=== PATIENT | female | born 1930 | race Caucasian/White ===

== ENCOUNTER 2017-04-26 16:27 | Inpatient (IN) | payer OTHER, MEDICAID ==
[~2017-04-26] VITALS: Ht 152.4 cm; Wt 54.2 kg
[~2017-04-26 16:27] MED LIST: CALC500T3 PO; DONE10TA44 PO; GABA-531 PO; HYDR-1189 PO; MIRT15TA7 PO; SOTA80TA PO; VITD2000 PO; WARF5TAB2 PO
[2017-04-26 17:26] VITALS: BP_SYST 117; BP_SYST 143
[2017-04-26] MEDS ORDERED: MEMA5TAB PO (17:58)
[2017-04-26] MEDS ORDERED: POTA-118 PO (17:59)
[2017-04-26] MEDS ORDERED: LevALBUTEROL HCL 1.25 MG/0.5 ML *CONC.* VIAL.NEB (XOPENEX CONC.) INH PRN (18:45)
[2017-04-26 18:59] LABS: BASOPHILS % (AUTO) 0.6 % (0.0-2.0); EOSINOPHILS # (AUTO) 0.1 K/uL (0.0-0.4); EOSINOPHILS % (AUTO) 0.9 % (0.0-4.0); HEMATOCRIT 40.3 % (36-48); HEMOGLOBIN 13.1 g/dL (12.0-16.0); LYMPHOCYTES # (AUTO) 1.1 K/uL (1.0-5.5); LYMPHOCYTES % (AUTO) 16.4 % (20.5-51.5); MEAN CORPUSCULAR HEMOGLOBIN 29 pg (27-31); MEAN CORPUSCULAR HGB CONC 33 % (32-36); MEAN CORPUSCULAR VOLUME 89 fL (79.0-98.0); MONOCYTES # (AUTO) 0.5 K/uL (0.0-1.0); MONOCYTES % (AUTO) 6.6 % (1.7-9.3); NEUTROPHILS # (AUTO) 5.2 K/uL (1.8-7.7); PLATELET COUNT (AUTO) 378 K/uL (130-430); RED BLOOD CELL COUNT(AUTO) 4.53 MIL/uL (4.2-6.2); RED CELL DISTRIBUTION WIDTH 14.4 % (9.0-15.0); WHITE BLOOD COUNT (AUTO) 6.9 K/uL (4.8-10.8)
[2017-04-26] MEDS: cefTRIAXone 1 GM in D5W 50 ML IV SCH (19:00)
[2017-04-26 19:19] LABS: NEUTROPHILS % (AUTO) 75.5 % (40.0-70.0)
[2017-04-26 19:49] LABS: INR 2.1 (0.8-1.2); PROTHROMBIN TIME 21.2 SECS (9.5-12.5)
[2017-04-26 20:00] VITALS: BP_SYST 143
[2017-04-26] MEDS ORDERED: cefTRIAXone 1 GM IVPB PREMIX 50 ML IV ONE (20:10)
[2017-04-26] MEDS ORDERED: AZITHROMYCIN 500 MG/VIAL (ZITHROMAX) IV ONE (20:10)
[2017-04-26 20:18] LABS: ALANINE AMINOTRANSFERASE 15 U/L (12-78); ALBUMIN 3.4 g/dL (3.4-4.8); ANION GAP 7 (5-15); ASPARTATE AMINOTRANSFERASE 16 U/L (10-37); CHLORIDE 98 mmol/L (98-107); CREATININE 0.76 mg/dL (0.55-1.30); GLUCOSE 91 mg/dL (70-99); POTASSIUM 3.9 mmol/L (3.5-5.1); SODIUM SERUM 134 mmol/L (136-145); TOTAL BILIRUBIN 0.3 mg/dL (0.0-1.0); UREA NITROGEN, BLOOD 35 mg/dL (8-21)
[2017-04-26] MEDS: KCL 20 mEq in D5NS 1000 mL 1,000 ML IV SCH (20:36)
[2017-04-26 20:40] VITALS: BP_SYST 143
[2017-04-26] MEDS: DONEPEZIL HCL 5 MG TABLET (ARICEPT) PO SCH (21:16)
[2017-04-26] MEDS: MEGESTROL ACETATE 400 MG/10 ML UDC PO SCH (21:16)
[2017-04-26] MEDS: MIRTAZAPINE 15 MG TABLET PO SCH (21:17)
[2017-04-26] MEDS: GABAPENTIN 100 MG CAPSULE PO SCH (21:18)
[2017-04-26] MEDS: SOTALOL HCL 80 MG TABLET PO SCH (21:18)
[2017-04-26] MEDS: MEMANTINE HCL 5 MG TABLET PO SCH (21:19)
[2017-04-26] MEDS: AZITHROMYCIN 500 MG in NS 250 ML IV SCH (22:16)
[2017-04-26] MEDS: LevALBUTEROL HCL 1.25 MG/0.5 ML *CONC.* VIAL.NEB (XOPENEX CONC.) INH SCH (23:49)
[2017-04-27 00:37] VITALS: BP_SYST 106
[2017-04-27] MEDS: LevALBUTEROL HCL 1.25 MG/0.5 ML *CONC.* VIAL.NEB (XOPENEX CONC.) INH SCH ×3 (07:14→23:09)
[2017-04-27 07:59] VITALS: BP_SYST 119
[2017-04-27] MEDS: MEMANTINE HCL 5 MG TABLET PO SCH ×2 (09:13→20:41)
[2017-04-27] MEDS: CHOLECALCIFEROL (VITAMIN D3) 2,000 UNIT TABLET PO SCH (09:13)
[2017-04-27] MEDS: MEGESTROL ACETATE 400 MG/10 ML UDC PO SCH ×2 (09:13→20:38)
[2017-04-27] MEDS: GABAPENTIN 100 MG CAPSULE PO SCH ×3 (09:13→20:41)
[2017-04-27] MEDS: CALCIUM 500 MG/TAB PO SCH (09:13)
[2017-04-27] MEDS: POTASSIUM CHLORIDE 10 MEQ TAB.PRT.SR PO SCH (09:13)
[2017-04-27] MEDS: SOTALOL HCL 80 MG TABLET PO SCH ×2 (09:14→20:40)
[2017-04-27 11:30] VITALS: BP_SYST 95
[2017-04-27] MEDS: KCL 20 mEq in D5NS 1000 mL 1,000 ML IV SCH (14:28)
[2017-04-27 15:04] VITALS: BP_SYST 96
[2017-04-27] MEDS: cefTRIAXone 1 GM in D5W 50 ML IV SCH (17:50)
[2017-04-27] MEDS: WARFARIN SODIUM 2 MG TABLET PO SCH (17:52)
[2017-04-27 19:05] VITALS: BP_SYST 129
[2017-04-27] MEDS: AZITHROMYCIN 500 MG in NS 250 ML IV SCH (20:38)
[2017-04-27] MEDS: MIRTAZAPINE 15 MG TABLET PO SCH (20:41)
[2017-04-27] MEDS: DONEPEZIL HCL 5 MG TABLET (ARICEPT) PO SCH (20:43)
[2017-04-28 01:08] VITALS: BP_SYST 104
[2017-04-28 07:47] LABS: INR 2.9 (0.8-1.2)
[2017-04-28 08:02] VITALS: BP_SYST 124
[2017-04-28 08:22] LABS: PROTHROMBIN TIME 29.7 SECS (9.5-12.5)
[2017-04-28] MEDS: MEGESTROL ACETATE 400 MG/10 ML UDC PO SCH ×2 (08:26→20:22)
[2017-04-28] MEDS: CALCIUM 500 MG/TAB PO SCH (08:27)
[2017-04-28] MEDS: SOTALOL HCL 80 MG TABLET PO SCH ×2 (08:27→20:22)
[2017-04-28] MEDS: GABAPENTIN 100 MG CAPSULE PO SCH ×3 (08:27→20:22)
[2017-04-28] MEDS: CHOLECALCIFEROL (VITAMIN D3) 2,000 UNIT TABLET PO SCH (08:28)
[2017-04-28] MEDS: MEMANTINE HCL 5 MG TABLET PO SCH ×2 (08:28→20:22)
[2017-04-28] MEDS: POTASSIUM CHLORIDE 10 MEQ TAB.PRT.SR PO SCH (08:28)
[2017-04-28] MEDS: LevALBUTEROL HCL 1.25 MG/0.5 ML *CONC.* VIAL.NEB (XOPENEX CONC.) INH SCH ×3 (09:32→22:47)
[2017-04-28 12:43] VITALS: BP_SYST 102
[2017-04-28] MEDS: KCL 20 mEq in D5NS 1000 mL 1,000 ML IV SCH (14:49)
[2017-04-28 16:24] VITALS: BP_SYST 128
[2017-04-28] MEDS: cefTRIAXone 1 GM in D5W 50 ML IV SCH (17:39)
[2017-04-28] MEDS: WARFARIN SODIUM 2 MG TABLET PO SCH (17:39)
[2017-04-28 19:51] VITALS: BP_SYST 132
[2017-04-28] MEDS: DONEPEZIL HCL 5 MG TABLET (ARICEPT) PO SCH (20:21)
[2017-04-28] MEDS: MIRTAZAPINE 15 MG TABLET PO SCH (20:21)
[2017-04-28] MEDS: AZITHROMYCIN 500 MG in NS 250 ML IV SCH (20:23)
[2017-04-28] MEDS ORDERED: FUROSEMIDE 40 MG/4 ML VIAL IVP ONE (20:45)
[2017-04-28] MEDS ORDERED: IBUPROFEN 400 MG TABLET PO ONE (21:30)
[2017-04-29 00:41] VITALS: BP_SYST 102
[2017-04-29 07:20] LABS: BASOPHILS % (AUTO) 0.2 % (0.0-2.0); EOSINOPHILS # (AUTO) 0.1 K/uL (0.0-0.4); HEMATOCRIT 37.2 % (36-48); HEMOGLOBIN 12.3 g/dL (12.0-16.0); LYMPHOCYTES % (AUTO) 14.8 % (20.5-51.5); MEAN CORPUSCULAR HEMOGLOBIN 30 pg (27-31); MEAN CORPUSCULAR HGB CONC 33 % (32-36); MEAN CORPUSCULAR VOLUME 90 fL (79.0-98.0); MONOCYTES # (AUTO) 0.4 K/uL (0.0-1.0); NEUTROPHILS # (AUTO) 5.6 K/uL (1.8-7.7); PLATELET COUNT (AUTO) 348 K/uL (130-430); RED BLOOD CELL COUNT(AUTO) 4.14 MIL/uL (4.2-6.2); RED CELL DISTRIBUTION WIDTH 14.2 % (9.0-15.0); WHITE BLOOD COUNT (AUTO) 7.1 K/uL (4.8-10.8)
[2017-04-29 07:32] LABS: ANION GAP 6 (5-15); CALCIUM 9.2 mg/dL (8.4-11.0); CHLORIDE 104 mmol/L (98-107); CREATININE 0.81 mg/dL (0.55-1.30); GLUCOSE 99 mg/dL (70-99); POTASSIUM 4.4 mmol/L (3.5-5.1); SODIUM SERUM 138 mmol/L (136-145); UREA NITROGEN, BLOOD 21 mg/dL (8-21)
[2017-04-29 07:36] LABS: INR 4.3 (0.8-1.2); PROTHROMBIN TIME 44.6 SECS (9.5-12.5)
[2017-04-29 08:08] VITALS: BP_SYST 106
[2017-04-29] MEDS: POTASSIUM CHLORIDE 10 MEQ TAB.PRT.SR PO SCH (10:12)
[2017-04-29] MEDS: GABAPENTIN 100 MG CAPSULE PO SCH ×3 (10:12→21:16)
[2017-04-29] MEDS: CHOLECALCIFEROL (VITAMIN D3) 2,000 UNIT TABLET PO SCH (10:12)
[2017-04-29] MEDS: MEGESTROL ACETATE 400 MG/10 ML UDC PO SCH ×2 (10:12→21:15)
[2017-04-29] MEDS: CALCIUM 500 MG/TAB PO SCH (10:13)
[2017-04-29] MEDS: SOTALOL HCL 80 MG TABLET PO SCH ×2 (10:13→22:26)
[2017-04-29] MEDS: IBUPROFEN 400 MG TABLET PO SCH ×3 (10:13→21:00)
[2017-04-29] MEDS: FUROSEMIDE 20 MG TABLET PO SCH ×2 (10:14→22:26)
[2017-04-29] MEDS: MEMANTINE HCL 5 MG TABLET PO SCH ×2 (10:14→21:17)
[2017-04-29 11:28] VITALS: BP_SYST 115
[2017-04-29 15:25] VITALS: BP_SYST 117
[2017-04-29] MEDS: LevALBUTEROL HCL 1.25 MG/0.5 ML *CONC.* VIAL.NEB (XOPENEX CONC.) INH SCH ×3 (15:56→23:20)
[2017-04-29 16:35] VITALS: BP_SYST 117
[2017-04-29] MEDS: WARFARIN SODIUM 2 MG TABLET PO SCH (18:00)
[2017-04-29] MEDS: cefTRIAXone 1 GM in D5W 50 ML IV SCH (18:43)
[2017-04-29 19:50] VITALS: BP_SYST 106
[2017-04-29] MEDS: AZITHROMYCIN 500 MG in NS 250 ML IV SCH (21:15)
[2017-04-29] MEDS: MIRTAZAPINE 15 MG TABLET PO SCH (21:16)
[2017-04-29] MEDS: DONEPEZIL HCL 5 MG TABLET (ARICEPT) PO SCH (21:16)
[2017-04-30] VITALS (7 sets, daily range): BP systolic 102–128
[2017-04-30 07:08] LABS: INR 3.6 (0.8-1.2); PROTHROMBIN TIME 37.2 SECS (9.5-12.5)
[2017-04-30] MEDS: LevALBUTEROL HCL 1.25 MG/0.5 ML *CONC.* VIAL.NEB (XOPENEX CONC.) INH SCH ×2 (07:20→15:14)
[2017-04-30] MEDS: GABAPENTIN 100 MG CAPSULE PO SCH ×2 (09:45→15:08)
[2017-04-30] MEDS: CALCIUM 500 MG/TAB PO SCH (09:45)
[2017-04-30] MEDS: MEMANTINE HCL 5 MG TABLET PO SCH (09:45)
[2017-04-30] MEDS: CHOLECALCIFEROL (VITAMIN D3) 2,000 UNIT TABLET PO SCH (09:45)
[2017-04-30] MEDS: POTASSIUM CHLORIDE 10 MEQ TAB.PRT.SR PO SCH (09:45)
[2017-04-30] MEDS: FUROSEMIDE 20 MG TABLET PO SCH (09:45)
[2017-04-30] MEDS: IBUPROFEN 400 MG TABLET PO SCH ×2 (09:47→15:09)
[2017-04-30] MEDS: MEGESTROL ACETATE 400 MG/10 ML UDC PO SCH (09:47)
[2017-04-30] MEDS: SOTALOL HCL 80 MG TABLET PO SCH ×2 (09:54→09:55)
[2017-04-30] MEDS: cefTRIAXone 1 GM in D5W 50 ML IV SCH (18:46)
[2017-04-30] MEDS ORDERED: MEGE400O PO (18:47)
[2017-05-02] MEDS ORDERED: FURO-149 PO (09:33)
[2017-05-02] MEDS ORDERED: WARF2TAB2 PO (13:36)
== END 2017-04-30 20:50 | disposition home or self-care (01) | DRG 291 ==
LOC: SMU 16:55 → STU 17:20
PROVIDERS: ADMIT Family Medicine; ATTEND Family Medicine
DX: I11.0 Hypertensive heart disease with heart failure (principal); J18.9 Pneumonia, unspecified organism; E86.0 Dehydration; I42.9 Cardiomyopathy, unspecified; F03.90 Unspecified dementia, unspecified severity, without behavioral disturbance, psychotic disturbance, mood disturbance, and anxiety; I50.23 Acute on chronic systolic (congestive) heart failure; F32.9 Major depressive disorder, single episode, unspecified; M19.90 Unspecified osteoarthritis, unspecified site
CPT/HCPCS: 36415; 71010; 80048; 80053; 83880; 85025; 85610-TC; 87081; 94640; 94760; 97116-GP; 97530-GP; J0456; J0696; J1940; J7030; J7050; J7060

== ENCOUNTER 2017-08-18 00:05 | Inpatient (IN) | payer OTHER, MEDICAID ==
[~2017-08-18] VITALS: Ht 121.9 cm; Wt 47.6 kg
[~2017-08-18 00:05] MED LIST changes: +ALPR0.2583 PO; +CRAN450C PO; +DOCU-144 PO; -HYDR-1189 PO; +MEGE400O PO; +MEMA5TAB PO; +METO5TAB8 PO; +MUC20RT MC; +MULT-1100 PO; +NITR1PAT3 TD; +POTA-118 PO; -WARF5TAB2 PO
[2017-08-18 00:40] VITALS: BP_SYST 139
[2017-08-18] MEDS: [UNRECOGNIZED DRUG - OTHER] IV SCH ×2 (01:19→16:23)
[2017-08-18] MEDS: POTASSIUM CHLORIDE IV SCH ×2 (01:19→16:23)
[2017-08-18] MEDS: D5 IV SCH ×2 (01:19→16:23)
[2017-08-18 03:56] VITALS: BP_SYST 138
[2017-08-18 08:46] VITALS: BP_SYST 142
[2017-08-18 12:48] VITALS: BP_SYST 131
[2017-08-18 17:02] VITALS: BP_SYST 131
[2017-08-18] MEDS ORDERED: MILK OF MAGNESIA 30 ML UDC PO PRN (17:15)
== END 2017-08-18 17:30 | disposition hospice, home (50) | DRG 70 ==
LOC: SMU 00:05
PROVIDERS: ADMIT Family Medicine; ATTEND Family Medicine
DX: G93.41 Metabolic encephalopathy (principal); I50.43 Acute on chronic combined systolic (congestive) and diastolic (congestive) heart failure; I42.9 Cardiomyopathy, unspecified; I48.0 Paroxysmal atrial fibrillation; N39.0 Urinary tract infection, site not specified; I50.9 Heart failure, unspecified; I05.0 Rheumatic mitral stenosis; Z66 Do not resuscitate
CPT/HCPCS: 87081; J3480